=== PATIENT | female | born 1965 | race African-American/Black ===

== ENCOUNTER 2017-05-08 07:52 | Outpatient (CLI) | payer BC ==
--- NOTE | 2017-05-08 11:55 | MMO ---
BILATERAL SCREENING MAMMOGRAM: Date: 05/08/17 INDICATION: Annual exam. COMPARISON: Prior exam dated 10/03/14. FINDINGS: Interpretation of this exam was assisted with computer-aided detection. There are scattered fibroglandular elements bilaterally. There are vascular calcifications bilaterally. No suspicious mass, cluster of microcalcifications, or area of architectural distortion is evident. IMPRESSION: BIRADS 2: Benign Finding(s) Recommend routine annual mammographic screening. POS: EMILIANO
== END 2017-05-08 07:53 | disposition home or self-care (01) ==
LOC: SCSMAMMO 07:52
PROVIDERS: ATTEND Obstetrics & Gynecology
DX: Z12.31 Encounter for screening mammogram for malignant neoplasm of breast (principal)
CPT/HCPCS: 77067; G0202